=== PATIENT | male | born 1985 | race Hispanic/Latino ===

== ENCOUNTER → 2024-04-26 07:38 | Outpatient (REF) | payer OTHER, SELFPAY ==
[2024-04-26 08:47] LABS: Urine Albumin Negative (Neg - Trace); Urine Bilirubin Negative (Negative); Urine Character Clear (Clear); Urine Color Yellow; Urine Glucose Negative (Negative); Urine Ketone Negative (Negative); Urine Leukocyte Negative (Negative); Urine Nitrite Negative (Negative); Urine Occult Blood Negative (Negative); Urine Urobilinogen Negative (Neg - 1+)
[2024-04-26 08:57] LABS: % Basophils 0.3 % (0-2); % Eosinophils 2.6 % (0-6); % Immature Granulocytes 0.6 % (0-0.5); % Lymphocytes 31.6 % (20.5-51.1); % Neutrophils 54.9 % (42.2-75.2); Absolute Eosinophils 0.2 10^3/uL (0-0.7); Absolute Monocytes 0.6 10^3/uL (0.1-0.6); Absolute Neutrophils 3.4 10^3/uL (1.4-6.5); Hematocrit 40.6 % (39.0-52.0); Mean Corp Hgb Conc. 36.9 g/dL (33.0-37.0); Mean Corpuscular Hgb 34.4 pg (27.0-31.0); Mean Corpuscular Volume 93.1 fL (80.0-94.0); Mean Platelet Volume 9.7 fL (7.4-10.4); Nucleated Red Blood Cells % 0 % (-); Platelet Count 265 10^3/uL (130-400); Red Blood Cell Count 4.36 10^6/uL (4.70-6.10); Red Cell Dist. Width 14.4 % (11.5-14.5); White Blood Cell Count 6.2 10^3/uL (4.8-10.8)
[2024-04-26 09:33] LABS: ALT (SGPT) 57 U/L (0-50); AST (SGOT) 50 U/L (17-59); Albumin 4.5 g/dl (3.5-5.0); Alkaline Phosphatase 69 U/L (38-126); Blood Urea Nitrogen 12 mg/dl (9-20); Calcium 9.5 mg/dl (8.4-10.2); Carbon Dioxide 27 mmol/L (22-30); Chloride 105 mmol/L (98-107); Glucose 106 mg/dl (70-99); HDL Cholesterol 51 mg/dl; LDL Cholesterol, Calculated 114 mg/dl; Sodium 140 mmol/L (135-145); Total Bilirubin 0.7 mg/dl (0.2-1.3); Total Cholesterol 196 mg/dl (50-199); Total Protein 7.2 g/dl (6.3-8.2); Triglyceride 158 mg/dl (10-149); Very Low Density Lipoprotein 31 mg/dl (0-30); eGFR > 60.00
[2024-04-26 09:44] LABS: Vitamin D, 25-OH*** 32.4 ng/mL (30-80)
[2024-04-26 09:56] LABS: Glycohemoglobin (HgbA1c) 4.6 % (4.0-5.6)
== END ==
LOC: CLINIC 07:38
PROVIDERS: ATTENDING PHYSICIAN Nurse Practitioner Acute Care
DX: Z00.00 Encounter for general adult medical examination without abnormal findings (principal)
CPT/HCPCS: 36415; 80053; 80061; 81003; 82306; 83036; 84443; 85025

== ENCOUNTER 2025-01-15 22:11 | Emergency (ER) | payer OTHER, SELFPAY ==
[2025-01-15 22:16] VITALS: BP 123/79
--- NOTE | 2025-01-16 01:57 | ED.MUSCINJ ---
HPI-Injury
General
Chief Complaint: Musculo-Skeletal Complaint
Source: patient and family
Exam Limitations: none
Time Seen by Provider: 01/16/25 01:14
Nursing documentation reviewed up to this point in time: agreed with
History of Present Illness-Injury
Initial Injury comments:
Pleasant 39-year-old male presents to the emergency department with acute on subacute right arm pain. About a month and a half ago he slipped on the ice landing on his right shoulder. He states that the pain has been waxing and waning since.
Patient states that tonight the pain increased. 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 Patient denies any new injury. Patient reports no other complaint. He has not followed up with
orthopedics. He has not immobilized his arm.
Past History
Past History
ED Past Medical History: None
ED Past Surgical History: None
Social History
Tobacco: Non-smoker
Alcohol: None
Drug: None
Living: with family
Review of Systems
Review of Systems
Allergies reviewed?: Yes
All Other Systems: ROS reviewed and negative except as documented in HPI and ROS
Constitutional: Reports no symptoms
EENT: Reports no symptoms
Respiratory: Reports no symptoms
Cardiac: Reports no symptoms
ABD/GI: Reports no symptoms
: Reports no symptoms
Musculoskeletal: Reports joint pain, muscle pain and muscle stiffness
Skin: Reports no symptoms
Neurological: Reports no symptoms
Endocrine: Reports no symptoms
Hematologic/Lymphatic: Reports no symptoms
Psychiatric: Reports no symptoms
Phy Exam
General Physical Exam
General Presentation: well appearing and no apparent distress
General Skin: warm and dry
General Habitus: normal
General Mental: alert
General Hydration: appears well hydrated
ENT Exam
ENT Exam: EOMI, pharynx normal, neck supple and normocephalic
Eye Exam
Eye Exam: PERRL, cornea clear and conjunctiva normal
Cardiovascular Exam
Cardiovascular Exam: regular rate/rhythm, no edema, no murmur and normal peripheral pulses
Pulmonary Exam
Pulmonary Exam: lungs clear, no respiratory distress, no rales, no crackles, no rhonchi, no stridor, no wheezing and no cough
Gastrointestinal Exam
Gastrointestinal Exam: normal bowel sounds, non tender, soft, no organomegaly, no pulsatile mass and non distended
Neurological Exam
Neurological Exam: alert, oriented x3, no motor deficits and speech normal
Musculoskeletal Exam
Musculoskeletal Exam: neuro vasc intact and other (Right shoulder, limited range of motion due to pain. Decreased. No)
Skin Exam
Skin Exam: normal color, warm/dry, no rash and no petechia
Psychiatric Exam
Psychiatric Exam: normal mood/affect
Injury Course
Orders/Labs/Results
Orders:
Orders
01/16/25 00:00
CR Shoulder - Right Min 2 View Urgent
Reason For Exam: fall
MDM/Problems Addressed
Differential Diagnosis Includes:
Rotator cuff injury, sprain
*Radiology
Radiology exam reviewed: radiology read reviewed
*Pulse Oximetry
Patient hypoxic: no
*Critical Care Note
Total Time (30-74mins, 75-104mins- exclusive of procedures): Not Applicable
ED Attending Note
-
Portions of this chart may have been created with voice recognition software.� Occasional wrong word or��sound alike� substitutions may have occurred due to the inherent limitations of voice recognition software.
Discharge Plan
Departure
Patient Disposition: Home (Routine Discharge)
Date of Disposition: 01/16/25
Time of Disposition: 02:00
Patient with high blood pressure during this ER visit?: Yes
Condition: Good
Discharge Problem:
Internal derangement of right shoulder
Instructions: Muscle and Bone Pain (DC), How to Use a Shoulder Sling, Using Cold for Pain, BLOOD PRESSURE
Prescriptions:
No Action
No Current Medications
0
Referrals:
[facility] [Provider Group]
UNKNOWN - PT DOES,NOT KNOW [Family Provider] -
Activity Restrictions/Additional Instructions:
It was a pleasure meeting you and taking part in your care. We hope for your continued healing and wellness.
Please read discharge instructions in their entirety. However, they are for general education and may not describe your exact diagnosis at discharge. Information on your ER visit and medical conditions were discussed with you along with appropriate
follow up information...
If indicated, please take your medications as instructed and indicated on discharge paperwork.
Please schedule a follow up appointment as directed. Call to schedule an appointment
Please return to the emergency department with ANY change in, persisting, or worsening of symptoms. If any of your symptoms do not improve, or persist, or become more severe within 6-12 hours, please return to the emergency department for further
care.
Please return to the emergency department if you develop a headache, neck pain/stiffness, fever greater than 100.4F, chest pain, shortness of breath, persistent nausea, vomiting, slurred speech, difficulty walking, numbness/tingling, weakness, signs
of infection or any other symptoms that are worrisome to you.
If you have any questions or concerns please do not hesitate to call the Hospital at or E-mail me directly at [email or web address]
Interventions
Interventions:
*Risk Screen - Suicide Last Done: 01/15/25 22:16
*General Assessment Last Done: 01/15/25 22:16
*Neglect/Abuse Screening Last Done: 01/15/25 22:16
*ED COVID-19 Vaccine History Last Done: 01/15/25 22:16
ED-Musculoskeletal Assessment Last Done: 01/16/25 01:56
Discharge Date and Time
Print Language: GUAMANIAN
[2025-01-16 02:06] VITALS: BP 128/36
== END 2025-01-16 02:07 | disposition home or self-care (01) ==
LOC: EMR 22:11
PROVIDERS: EMERGENCY PHYSICIAN Student in an Organized Health Care Education/Training Program
DX: M24.811 Other specific joint derangements of right shoulder, not elsewhere classified (principal); W00.0XXA Fall on same level due to ice and snow, initial encounter
CPT/HCPCS: 99283; 73030

== ENCOUNTER → 2025-02-07 07:34 | Outpatient (REF) | payer OTHER, SELFPAY ==
[2025-02-07 08:28] LABS: Hematocrit 38.7 % (39.0-52.0); Hemoglobin 14.2 g/dL (13.0-18.0); Mean Corp Hgb Conc. 36.7 g/dL (33.0-37.0); Mean Corpuscular Hgb 32.9 pg (27.0-31.0); Mean Corpuscular Volume 89.8 fL (80.0-94.0); Mean Platelet Volume 10.4 fL (7.4-10.4); Platelet Count 192 10^3/uL (130-400); Red Blood Cell Count 4.31 10^6/uL (4.70-6.10); Red Cell Dist. Width 15.1 % (11.5-14.5); White Blood Cell Count 6.4 10^3/uL (4.8-10.8)
[2025-02-07 09:00] LABS: ALT (SGPT) 22 U/L (0-50); AST (SGOT) 25 U/L (17-59); Albumin 4.1 g/dl (3.5-5.0); Alkaline Phosphatase 55 U/L (38-126); Blood Urea Nitrogen 17 mg/dl (9-20); Calcium 9.5 mg/dl (8.4-10.2); Carbon Dioxide 27 mmol/L (22-30); Chloride 108 mmol/L (98-107); Glucose 102 mg/dl (70-99); HDL Cholesterol 43 mg/dl; LDL Cholesterol, Calculated 73 mg/dl; Potassium 4.8 mmol/L (3.5-5.1); Sodium 143 mmol/L (135-145); Total Bilirubin 0.7 mg/dl (0.2-1.3); Total Cholesterol 136 mg/dl (50-199); Total Protein 6.8 g/dl (6.3-8.2); Triglyceride 103 mg/dl (10-149); Very Low Density Lipoprotein 20 mg/dl (0-30); eGFR > 60.00
[2025-02-07 09:16] LABS: Vitamin D, 25-OH*** 24.2 ng/mL (30-80)
[2025-02-07 09:29] LABS: TSH Reflex To Free T4 4.08 uIU/ml (0.47-4.68)
== END ==
LOC: CLINIC 07:34
PROVIDERS: ATTENDING PHYSICIAN Nurse Practitioner Adult Health
DX: Z00.00 Encounter for general adult medical examination without abnormal findings (principal); E55.9 Vitamin D deficiency, unspecified
CPT/HCPCS: 36415; 80053; 80061; 82306; 84443; 85027